=== PATIENT | male | born 1990 | race African-American/Black ===

== ENCOUNTER 2018-12-06 20:00 | Emergency (ER) | payer SELFPAY ==
--- NOTE | 2018-12-06 20:50 | RAD REPORT ---
EXAM DESCRIPTION: CT - Head Brain Wo Cont - 12/06/2018 8:44 pm CLINICAL HISTORY: VISUAL DISTURBANCES Headache, hypertension, drowsiness COMPARISON: <Comparisons> TECHNIQUE: All CT scans are performed using dose optimization technique as appropriate and may inclu de automated exposure control or mA/KV adjustment according to patient size. FINDINGS: No intracranial hemorrhage, hydrocephalus or extra-axial fluid collection.No areas of brai n edema or evidence of midline shift. The paranasal sinuses and mastoids are clear. The calvarium is intact. IMPRESSION: No acute intracranial abnormality.
[2018-12-06 21:08] LABS: Absolute Lymphocytes (CBC) 2.2 K/uL (0.7-4.9); Basophils % 0.6 % (0-1.3); Eosinophils % 2.7 % (0-4.4); Hematocrit 47.1 % (39.6-49.0); Lymphocytes % 27.8 % (15.3-44.8); MPV 9.7 fL (7.6-11.3); Monocytes % 10.5 % (3.3-12.3)
[2018-12-06] MEDS ORDERED: ENALAPRILAT 1.25 MG/ML VIAL IV ONE ×2 (21:19→21:55)
[2018-12-06 21:23] LABS: Potassium 3.8 mmol/L (3.5-5.1)
[2018-12-06] MEDS ORDERED: AMLODIPINE 5 MG TAB ONE (22:31)
[2018-12-07] MEDS ORDERED: HYDRALAZINE HCL 20 MG/ML VIAL ONE (00:02)
--- NOTE | 2018-12-07 00:28 | EDPHYS ---
Physician Documentation [facility] Name: Luis Bowers Jr Age: 28 yrs Sex: Male : 1990 Arrival Date: 12/06/2018 Time: 20:04 Bed 23 Private MD: Yuan Daily V ED Physician Pino Bunn HPI: 12/07 02:57 This 28 yrs old Black Male presents to ER via Ambulatory with complaints of Blurred gs Vision, double vision, High Blood Pressure. 02:57 The patient has elevated blood pressure and discovered this at home. Onset: The gs symptoms/episode began/occurred yesterday. Modifying factors: The symptoms are aggravated by activity, The symptoms are alleviated by. Associated signs and symptoms: Pertinent positives: visual changes, Pertinent negatives: chest pain, dizziness, dyspnea, headache. Severity of symptoms: At its worst the blood pressure was severe, in the emergency department the blood pressure is unchanged. The patient has experienced similar episodes in the past, a few times. hasnt taken amlodipine in a while, vusual changes brief resolved completely. Historical: - Allergies: 12/06 20:17 Claritin; ak1 - Home Meds: 20:17 amlodipine 10 mg tab 1 tab once daily for Hypertension [Active]; ak1 - PMHx: 20:17 Hypertension; ak1 - PSHx: 20:17 None; ak1 - Immunization history:: Adult Immunizations unknown. - Social history:: Smoking status: Patient uses tobacco products, cigars. - Ebola Screening: : No symptoms or risks identified at this time. ROS: 12/07 02:57 All other systems are negative. gs Exam: 02:57 Head/Face: Normocephalic, atraumatic. Eyes: Pupils equal round and reactive to light, gs extra-ocular motions intact. Lids and lashes normal. Conjunctiva and sclera are non-icteric and not injected. Cornea within normal limits. Periorbital areas with no swelling, redness, or edema. ENT: Nares patent. No nasal discharge, no septal abnormalities noted. Tympanic membranes are normal and external auditory canals are clear. Oropharynx with no redness, swelling, or masses, exudates, or evidence of obstruction, uvula midline. Mucous membranes moist. Neck: Trachea midline, no thyromegaly or masses palpated, and no cervical lymphadenopathy. Supple, full range of motion without nuchal rigidity, or vertebral point tenderness. No Meningismus. Chest/axilla: Normal chest wall appearance and motion. Nontender with no deformity. No lesions are appreciated. Cardiovascular: Regular rate and rhythm with a normal S1 and S2. No gallops, murmurs, or rubs. Normal PMI, no JVD. No pulse deficits. Respiratory: Lungs have equal breath sounds bilaterally, clear to auscultation and percussion. No rales, rhonchi or wheezes noted. No increased work of breathing, no retractions or nasal flaring. Abdomen/GI: Soft, non-tender, with normal bowel sounds. No distension or tympany. No guarding or rebound. No evidence of tenderness throughout. Back: No spinal tenderness. No costovertebral tenderness. Full range of motion. Skin: Warm, dry with normal turgor. Normal color with no rashes, no lesions, and no evidence of cellulitis. MS/ Extremity: Pulses equal, no cyanosis. Neurovascular intact. Full, normal range of motion. Neuro: Awake and alert, GCS 15, oriented to person, place, time, and situation. Cranial nerves II-XII grossly intact. Motor strength 5/5 in all extremities. Sensory grossly intact. Cerebellar exam normal. Normal gait. 02:57 Constitutional: The patient appears alert, awake. 02:57 ECG was reviewed by the Attending Physician. Vital Signs: 12/06 20:15 BP 203 / 133; Pulse 92; Resp 16; Temp 98.2; Pulse Ox 97% on R/A; Weight 106.59 kg (R); ak1 Height 5 ft. 8 in. (172.72 cm) (R); Pain 0/10; 20:45 BP 195 / 133; Pulse 84; Resp 19; Pulse Ox 99% on R/A; ca1 21:39 BP 177 / 118; Pulse 70; Resp 17 S; Pulse Ox 95% on R/A; ca1 22:06 BP 175 / 117; Pulse 74; Resp 17 S; Temp 98(O); Pulse Ox 96% on R/A; ca1 22:12 BP 175 / 115; Pulse 70; Resp 21; Pulse Ox 96% on R/A; ca1 22:49 BP 178 / 114; Pulse 66; Resp 21; Pulse Ox 96% on R/A; ca1 23:00 BP 165 / 109; Pulse 73; Resp 16 S; Pulse Ox 98% on R/A; ca1 23:33 BP 178 / 111; Pulse 68; Resp 15; Pulse Ox 97% on R/A; ca1 18 00:03 BP 171 / 108; Pulse 71; Resp 20; Pulse Ox 96% on R/A; ca1 00:50 BP 167 / 106; Pulse 76; Resp 17 S; Pulse Ox 97% on R/A; ca1 12/06 20:15 Body Mass Index 35.73 (106.59 kg, 172.72 cm) ak1 MDM: 12/06 21:09 Patient medically screened. 12/07 02:57 Differential diagnosis: hypertensive crisis, Malignant HTN, intracerebral hemorrhage. Data reviewed: vital signs, nurses notes, lab test result(s), EKG, radiologic studies. Counseling: I had a detailed discussion with the patient and/or guardian regarding: the historical points, exam findings, and any diagnostic results supporting the discharge/admit diagnosis, lab results, radiology results, the need for outpatient follow up. Response to treatment: the patient's symptoms have markedly improved after treatment, the patient is now symptom free, and as a result, I will discharge patient. 12/06 20:20 Order name: Basic Metabolic Panel; Complete Time: 21:34 12/06 20:20 Order name: CBC with Diff; Complete Time: 21:34 12/06 20:20 Order name: CT Head Brain wo Cont; Complete Time: 20:52 12/06 20:20 Order name: EKG; Complete Time: 20:22 12/06 20:20 Order name: Cardiac monitoring; Complete Time: 20:40 12/06 20:20 Order name: EKG - Nurse/Tech; Complete Time: 21:03 12/06 20:20 Order name: IV Saline Lock; Complete Time: 20:40 12/06 20:20 Order name: Labs collected and sent; Complete Time: 21:03 12/06 20:20 Order name: O2 Per Protocol; Complete Time: 20:40 12/06 20:20 Order name: O2 Sat Monitoring; Complete Time: 20:40 EC:57 Rate is 74 beats/min. Rhythm is regular. [place] interval is normal. QRS interval is gs prolonged. T waves are Flattened. Clinical impression: NSR w/ Non-specific ST/T Changes. Interpreted by me. Administered Medications: 12/06 21:08 Drug: Enalaprilat 1.25 mg Route: IV; Rate: 1.25 calculated rate; Site: right ca1 antecubital; 12/07 00:51 Follow up: Response: No adverse reaction; IV Status: Completed infusion ca1 12/06 21:40 Drug: Enalaprilat 1.25 mg Route: IV; Rate: 1.25 calculated rate; Site: right ca1 antecubital; 12/07 00:52 Follow up: Response: No adverse reaction; IV Status: Completed infusion ca1 12/06 22:18 Drug: amLODIPine 10 mg Route: PO; ca1 12/07 00:52 Follow up: Response: No adverse reaction ca1 12/06 23:46 Drug: hydrALAZINE 10 mg Route: IV; Rate: calculated rate; Site: left antecubital; ca1 12/07 00:51 Follow up: Response: No adverse reaction; Blood pressure is lowered; IV Status: ca1 Completed infusion Disposition: 12/07/18 00:26 Discharged to Home. Impression: Essential (primary) hypertension. - Condition is Stable. - Discharge Instructions: Hypertension. - Prescriptions for Norvasc 10 mg Oral Tablet - take 1 tablet by ORAL route once daily; 30 tablet. - Medication Reconciliation Form, Thank You Letter, Antibiotic Education, Prescription Opioid Use form. - Follow up: Private Physician; When: 2 - 3 days; Reason: Re-evaluation by your physician. Signatures: Dispatcher [employer] EDIA Shy Culver RN RN ak1 Pino Bunn MD MD Shi Zhang RN RN ca1 Corrections: (The following items were deleted from the chart) 00:52 00:26 12/07/2018 00:26 Discharged to Home. Impression: Essential (primary) ca1 hypertension. Condition is Stable. Forms are Medication Reconciliation Form, Thank You Letter, Antibiotic Education, Prescription Opioid Use. Follow up: Private Physician; When: 2 - 3 days; Reason: Re-evaluation by your physician.
--- NOTE | 2018-12-07 00:28 | ER ---
Nurse's Notes [facility] Name: Luis Bowers Jr Age: 28 yrs Sex: Male : 1990 Arrival Date: 12/06/2018 Time: 20:04 Bed 23 Private MD: Yuan Daily V Diagnosis: Essential (primary) hypertension Presentation: 12/06 20:16 Presenting complaint: Patient states: double vision since 1245 today. pt stated he took ak1 his blood pressure medication at 1600 for the first time in over a week. pt stated he just refilled his medication today. pt sees Dr. Jacobson. Transition of care: patient was not received from another setting of care. Onset of symptoms was December 06, 2018. Risk Assessment: Do you want to hurt yourself or someone else? Patient reports no desire to harm self or others. Initial Sepsis Screen: Does the patient meet any 2 criteria? No. Patient's initial sepsis screen is negative. Does the patient have a suspected source of infection? No. Patient's initial sepsis screen is negative. Care prior to arrival: None. 20:16 Method Of Arrival: Ambulatory ak1 20:16 Acuity: JOSE 2 ak1 Triage Assessment: 20:17 General: Appears in no apparent distress. Behavior is calm, cooperative, anxious. Pain: ak1 Denies pain. Neuro: Level of Consciousness is awake, alert, obeys commands, Oriented to person, place, time, situation, Swiss Type Screw Machine Operator are equal bilaterally Moves all extremities. Gait is steady, Speech is normal, Facial symmetry appears normal, Facial symmetry: tongue is midline, Pupils are PERRLA, pt c/o double vision since 1245 today. pt has been out of his hypertension medication for "over a week" . Historical: - Allergies: 20:17 Claritin; ak1 - Home Meds: 20:17 amlodipine 10 mg tab 1 tab once daily for Hypertension [Active]; ak1 - PMHx: 20:17 Hypertension; ak1 - PSHx: 20:17 None; ak1 - Immunization history:: Adult Immunizations unknown. - Social history:: Smoking status: Patient uses tobacco products, cigars. - Ebola Screening: : No symptoms or risks identified at this time. Screenin:18 Abuse screen: Denies threats or abuse. Denies injuries from another. Nutritional ak1 screening: No deficits noted. Tuberculosis screening: No symptoms or risk factors identified. Fall Risk None identified. Assessment: 20:15 General: Appears in no apparent distress. comfortable, Behavior is calm, cooperative, ca1 appropriate for age. Pain: Denies pain. Neuro: Level of Consciousness is awake, alert, obeys commands, Oriented to person, place, time, situation, Swiss Type Screw Machine Operator are equal bilaterally Moves all extremities. Gait is steady, Speech is normal, Facial symmetry appears normal, Reports diplopia, since 1230 today. Cardiovascular: Heart tones S1 S2 present Capillary refill < 3 seconds Patient's skin is warm and dry. Respiratory: Airway is patent Respiratory effort is even, unlabored, Respiratory pattern is regular, symmetrical, Breath sounds are clear bilaterally. GI: Abdomen is round non-distended, Bowel sounds present X 4 quads. Abd is soft and non tender X 4 quads. : No deficits noted. No signs and/or symptoms were reported regarding the genitourinary system. EENT: No deficits noted. No signs and/or symptoms were reported regarding the EENT system. Derm: Skin is intact, is healthy with good turgor, Skin is pink, warm \\T\\ dry. Musculoskeletal: Circulation, motion, and sensation intact. Capillary refill < 3 seconds, Range of motion: intact in all extremities. 21:06 Reassessment: Patient appears in no apparent distress at this time. Patient is alert, ca1 oriented x 3, equal unlabored respirations, skin warm/dry/pink. 22:11 Reassessment: Patient appears in no apparent distress at this time. Patient and/or ca1 family updated on plan of care and expected duration. Pain level reassessed. Patient is alert, oriented x 3, equal unlabored respirations, skin warm/dry/pink. 22:49 Reassessment: Patient appears in no apparent distress at this time. Patient and/or ca1 family updated on plan of care and expected duration. Pain level reassessed. Patient is alert, oriented x 3, equal unlabored respirations, skin warm/dry/pink. 23:19 Reassessment: Patient appears in no apparent distress at this time. Patient is alert, ca1 oriented x 3, equal unlabored respirations, skin warm/dry/pink. 12/07 00:03 Reassessment: Patient appears in no apparent distress at this time. Patient and/or ca1 family updated on plan of care and expected duration. Pain level reassessed. Patient is alert, oriented x 3, equal unlabored respirations, skin warm/dry/pink. 00:50 Reassessment: Patient appears in no apparent distress at this time. Patient is alert, ca1 oriented x 3, equal unlabored respirations, skin warm/dry/pink. Vital Signs: 12/06 20:15 BP 203 / 133; Pulse 92; Resp 16; Temp 98.2; Pulse Ox 97% on R/A; Weight 106.59 kg (R); ak1 Height 5 ft. 8 in. (172.72 cm) (R); Pain 0/10; 20:45 BP 195 / 133; Pulse 84; Resp 19; Pulse Ox 99% on R/A; ca1 21:39 BP 177 / 118; Pulse 70; Resp 17 S; Pulse Ox 95% on R/A; ca1 22:06 BP 175 / 117; Pulse 74; Resp 17 S; Temp 98(O); Pulse Ox 96% on R/A; ca1 22:12 BP 175 / 115; Pulse 70; Resp 21; Pulse Ox 96% on R/A; ca1 22:49 BP 178 / 114; Pulse 66; Resp 21; Pulse Ox 96% on R/A; ca1 23:00 BP 165 / 109; Pulse 73; Resp 16 S; Pulse Ox 98% on R/A; ca1 23:33 BP 178 / 111; Pulse 68; Resp 15; Pulse Ox 97% on R/A; ca1 12/07 00:03 BP 171 / 108; Pulse 71; Resp 20; Pulse Ox 96% on R/A; ca1 00:50 BP 167 / 106; Pulse 76; Resp 17 S; Pulse Ox 97% on R/A; ca1 12/06 20:15 Body Mass Index 35.73 (106.59 kg, 172.72 cm) ak1 ED Course: 12/06 20:04 Patient arrived in ED. es 20:05 Yuan Daily MD is Private Physician. es 20:15 radiation monitor on. Warm blanket given. ca1 20:17 Shi Zhang, ARNEL is Primary Nurse. ca1 20:17 Triage completed. ak1 20:18 Arm band placed on Patient placed in an exam room, on a stretcher, on pulse oximetry, ak1 Patient notified of wait time. 20:18 Patient has correct armband on for positive identification. Bed in low position. Call ak1 light in reach. Side rails up X 1. Pulse ox on. NIBP on. 20:20 Pino Bunn MD is Attending Physician. 20:40 No provider procedures requiring assistance completed. Inserted saline lock: 22 gauge ca1 in right forearm, using aseptic technique. Blood collected. 20:43 CT Head Brain wo Cont In Process Unspecified. EDMS 20:[address] via wheelchair. ca1 21:01 Initial lab(s) drawn, by me, sent to lab. ca1 12/07 00:50 IV discontinued, intact, bleeding controlled, No redness/swelling at site. Pressure ca1 dressing applied. Administered Medications: 12/06 21:08 Drug: Enalaprilat 1.25 mg Route: IV; Rate: 1.25 calculated rate; Site: right ca1 antecubital; 12/07 00:51 Follow up: Response: No adverse reaction; IV Status: Completed infusion ca1 12/06 21:40 Drug: Enalaprilat 1.25 mg Route: IV; Rate: 1.25 calculated rate; Site: right ca1 antecubital; 12/07 00:52 Follow up: Response: No adverse reaction; IV Status: Completed infusion ca1 12/06 22:18 Drug: amLODIPine 10 mg Route: PO; ca1 12/07 00:52 Follow up: Response: No adverse reaction ca1 12/06 23:46 Drug: hydrALAZINE 10 mg Route: IV; Rate: calculated rate; Site: left antecubital; ca1 12/07 00:51 Follow up: Response: No adverse reaction; Blood pressure is lowered; IV Status: ca1 Completed infusion Outcome: 00:26 Discharge ordered by . gs 00:50 Discharged to home ambulatory, with family. ca1 00:50 Condition: stable 00:50 Discharge instructions given to patient, Instructed on discharge instructions, follow up and referral plans. medication usage, Demonstrated understanding of instructions, follow-up care, medications, Prescriptions given X 1. 00:52 Patient left the ED. ca1 Signatures: Dispatcher [employer] EDDE Dorinda Norton Amber, RN RN ak1 Pino Bunn MD MD Shi Zhang RN RN ca1
[2018-12-07] MEDS ORDERED: NA CHLORIDE 0.9% 1,000 ML ONE (02:03)
[2018-12-07] MEDS ORDERED: ONDANSETRON 4 MG/2 ML VIAL ONE (02:03)
--- NOTE | 2018-12-07 12:11 | EKG ---
Test Date: 2018-12-06 Test Time: 21:00:12 Personal Care Aide: GENNY MEASUREMENT RESULTS: Intervals: Rate: 74 NH: 174 QRSD: 106 QT: 414 QTc: 459 [place]: P: 53 NH: 174 QRS: 56 T: 20 INTERPRETIVE STATEMENTS: Normal sinus rhythm Nonspecific T wave abnormality Abnormal ECG No previous ECG available for comparison Electronically Signed On 12-07-18 12:10:20 CDT by Juwan Jauregui
== END 2018-12-07 00:52 | disposition home or self-care (01) ==
LOC: ER 20:00
DX: I10 Essential (primary) hypertension (principal); Z72.0 Tobacco use
CPT/HCPCS: 36415; 70450; 80048; 85025; 93005; 99285; J2405; J7030

== ENCOUNTER 2019-06-09 17:16 | Emergency (ER) | payer SELFPAY ==
--- NOTE | 2019-06-09 18:11 | RAD REPORT ---
EXAM DESCRIPTION: RAD - Chest Single View - 06/09/2019 6:05 pm CLINICAL HISTORY: CHEST PAIN Chest pain. COMPARISON: No comparisons FINDINGS: Portable technique limits examination quality. The lungs are grossly clear. The heart is normal in size. No displaced fractures. IMPRESSION: No acute intrathoracic process suspected.
[2019-06-09 18:35] LABS: Absolute Lymphocytes (CBC) 2.1 K/uL (0.7-4.9); Basophils % 0.8 % (0-1.3); Hematocrit 45.4 % (39.6-49.0); Lymphocytes % 28.9 % (15.3-44.8); MPV 9.1 fL (7.6-11.3); RBC Red Blood Cell Count 5.24 M/uL (4.33-5.43)
[2019-06-09 18:43] LABS: Protime INR 1.08
[2019-06-09 18:58] LABS: ALT/SGPT 48 U/L (12-78); AST/SGOT 25 U/L (15-37); Albumin 3.7 g/dL (3.4-5.0); Alkaline Phosphatase 72 U/L (45-117); BUN Blood Urea Nitrogen 12 mg/dL (7-18); Bicarbonate 25 mmol/L (21-32); Bilirubin Direct < 0.1 mg/dL (0-0.2); Bilirubin Total 0.4 mg/dL (0.2-1.0); Glucose Level 92 mg/dL (74-106); Magnesium 2.3 mg/dL (1.8-2.4); NT PRO-BNP 31 pg/mL (<125); Potassium 3.8 mmol/L (3.5-5.1); Protein, Total 8.1 g/dL (6.4-8.2); Sodium Level 140 mmol/L (136-145); Troponin (Emerg Dept Use Only) < 0.02 ng/mL (0.0-0.045)
--- NOTE | 2019-06-09 19:44 | EDPHYS ---
Physician Documentation [facility] Name: Luis Bowers Jr Age: 29 yrs Sex: Male : 1990 Arrival Date: 06/09/2019 Time: 17:17 Bed 7 Private MD: ED Physician Joey Cabral HPI: 06/09 17:47 This 29 yrs old Black Male presents to ER via Ambulatory with complaints of Chest Pain. [facility] 17:47 The patient or guardian reports chest pain that is located primarily in the anterior [facility] chest wall. 17:47 The pain does not radiate. The chest pain is described as aching. Duration: The patient jmm or guardian reports multiple episodes. This is a 29 year old male with a history of htn that presents to the ED with complaints of left sided chest pain which initially began 4 days ago. Patient states he has had ongoing pain to his left shoulder which radiates down his left arm. Denies shortness of breath. . Historical: - Allergies: 17:26 Claritin; aa5 - Home Meds: 17:26 amlodipine 10 mg tab 1 tab once daily for Hypertension [Active]; aa5 - PMHx: 17:26 Hypertension; aa5 - PSHx: 17:26 None; aa5 - Immunization history:: Flu vaccine is not up to date. - Social history:: Smoking status: Patient uses tobacco products, cigars. - Ebola Screening: : No symptoms or risks identified at this time. ROS: 17:47 Constitutional: Negative for fever, chills, and weight loss. jmm 17:47 Respiratory: Negative for shortness of breath, cough, wheezing, and pleuritic chest pain. 17:47 Cardiovascular: Positive for chest pain. 17:47 Respiratory: 17:47 Back: Positive for pain with movement. 17:47 MS/extremity: Positive for pain. 17:47 All other systems are negative. Exam: 17:47 Constitutional: This is a well developed, well nourished patient who is awake, alert, jmm and in no acute distress. Head/Face: atraumatic. Eyes: EOMI, no conjunctival erythema appreciated ENT: Moist Mucus Membranes Neck: Trachea midline, Supple Chest/axilla: Normal chest wall appearance and motion. 17:47 Abdomen/GI: Non distended, soft Back: Normal ROM Skin: General appearance color normal MS/ Extremity: Moves all extremities, no obvious deformities appreciated, no edema noted to the lower extremities Neuro: Awake and alert, normal gait Psych: Behavior is normal, Mood is normal, Patient is cooperative and pleasant 17:47 Cardiovascular: Rate: normal, Rhythm: regular, Pulses: no pulse deficits are appreciated. 17:47 ECG was reviewed by the Attending Physician. 17:47 Respiratory: the patient does not display signs of respiratory distress, Respirations: normal, Breath sounds: are clear throughout. Vital Signs: 17:20 BP 138 / 92; Pulse 73; Resp 16 S; Temp 98.3(O); Pulse Ox 98% on R/A; Weight 108.86 kg aa5 (R); Height 5 ft. 8 in. (172.72 cm) (R); Pain 0/10; 18:31 BP 138 / 90; Pulse 77; Resp 16; Pulse Ox 97% ; sv 19:14 BP 164 / 96; Pulse 72; Resp 18; Pulse Ox 97% on R/A; lp1 20:16 BP 141 / 75; Pulse 75; Resp 19; Temp 97.7; Pulse Ox 99% on R/A; rr5 17:20 Body Mass Index 36.49 (108.86 kg, 172.72 cm) aa5 MDM: 17:47 Patient medically screened. [facility] 19:38 Data reviewed: vital signs, nurses notes, EMS record, lab test result(s). ED course: [facility] HEART SCORE = 3. PERC NEGATIVE. Pain is most likely musculoskeletal and is reproduceable on movement and palpation. Patient advised to follow up with PCP and otherwise given strict return precautions. Patient understood and agrees with the plan of care. . 06/09 17:47 Order name: Basic Metabolic Panel; Complete Time: 18:59 [facility] 06/09 17:47 Order name: CBC with Diff; Complete Time: 18:50 [facility] 06/09 17:47 Order name: LFT's; Complete Time: 18:59 [facility] 06/09 17:47 Order name: Magnesium; Complete Time: 18:59 [facility] 06/09 17:47 Order name: NT PRO-BNP; Complete Time: 18:59 [facility] 06/09 17:47 Order name: PT-INR; Complete Time: 18:46 [facility] 06/09 17:47 Order name: Troponin (emerg Dept Use Only); Complete Time: 18:59 [facility] 06/09 17:47 Order name: XRAY Chest (1 view); Complete Time: 18:19 [facility] 06/09 17:47 Order name: EKG; Complete Time: 17:48 [facility] 06/09 17:47 Order name: Cardiac monitoring; Complete Time: 17:58 [facility] 06/09 17:47 Order name: EKG - Nurse/Tech; Complete Time: 17:58 [facility] 06/09 17:47 Order name: IV Saline Lock; Complete Time: 17:58 [facility] 06/09 17:47 Order name: Labs collected and sent; Complete Time: 17:58 [facility] 06/09 17:47 Order name: O2 Per Protocol; Complete Time: 17:58 [facility] 06/09 17:47 Order name: O2 Sat Monitoring; Complete Time: 17:58 jmm EC:47 Rate is 77 beats/min. Rhythm is regular. QRS [place] is Normal. [place] interval is normal. QRS jmm interval is normal. QT interval is normal. No Q waves. T waves are Inverted in lead III. Reviewed by me. Administered Medications: No medications were administered Disposition: 06/10 07:16 Co-signature as Attending Physician, Joey Cabral MD. rn Disposition: 06/09/19 19:43 Discharged to Home. Impression: Chest pain, unspecified. - Condition is Stable. - Discharge Instructions: Nonspecific Chest Pain. - Prescriptions for orphenadrine citrate 100 mg Oral Tablet Sustained Release - take 1 tablet by ORAL route 2 times per day As needed; 20 tablet. - Medication Reconciliation Form, Thank You Letter, Antibiotic Education, Prescription Opioid Use form. - Follow up: Private Physician; When: 2 - 3 days; Reason: Recheck today's complaints, Continuance of care, Re-evaluation by your physician. Signatures: Dispatcher [employer] EDMS Fco Franklin PA PA jmm Nieto, Roman, MD MD rn Calderon, Audri RN RN aa5 Alphonse Smith RN RN rr5 Corrections: (The following items were deleted from the chart) 06/09 20:18 19:43 06/09/2019 19:43 Discharged to Home. Impression: Chest pain, unspecified. rr5 Condition is Stable. Forms are Medication Reconciliation Form, Thank You Letter, Antibiotic Education, Prescription Opioid Use. Follow up: Private Physician; When: 2 - 3 days; Reason: Recheck today's complaints, Continuance of care, Re-evaluation by your physician. quyen
--- NOTE | 2019-06-09 19:44 | ER ---
Nurse's Notes [facility] Name: Luis Bowers Jr Age: 29 yrs Sex: Male : 1990 Arrival Date: 06/09/2019 Time: 17:17 Bed 7 Private MD: Diagnosis: Chest pain, unspecified Presentation: 06/09 17:19 Presenting complaint: Patient states: pain to left anterior aspect of chest that began aa5 Thursday night and went away and now pain is back to left scapular area. Pt states "It only hurts with certain movement and when I lay on my back it stops hurting". 17:19 Transition of care: patient was not received from another setting of care. Onset of aa5 symptoms was May 2019. Risk Assessment: Do you want to hurt yourself or someone else? Patient reports no desire to harm self or others. Initial Sepsis Screen: Does the patient meet any 2 criteria? No. Patient's initial sepsis screen is negative. Does the patient have a suspected source of infection? No. Patient's initial sepsis screen is negative. Care prior to arrival: None. 17:19 Acuity: JOSE 3 aa5 17:19 Method Of Arrival: Ambulatory aa5 Historical: - Allergies: 17:26 Claritin; aa5 - Home Meds: 17:26 amlodipine 10 mg tab 1 tab once daily for Hypertension [Active]; aa5 - PMHx: 17:26 Hypertension; aa5 - PSHx: 17:26 None; aa5 - Immunization history:: Flu vaccine is not up to date. - Social history:: Smoking status: Patient uses tobacco products, cigars. - Ebola Screening: : No symptoms or risks identified at this time. Screenin:58 Abuse screen: Denies threats or abuse. Denies injuries from another. Nutritional sg screening: No deficits noted. Tuberculosis screening: No symptoms or risk factors identified. Never had TB. Fall Risk None identified. Assessment: 17:58 General: Appears in no apparent distress. well groomed, well developed, well nourished, sg Behavior is calm, cooperative, appropriate for age. Pain: Complains of pain in chest Pain radiates to left scapular area Quality of pain is described as aching, sharp. Neuro: Level of Consciousness is awake, alert, obeys commands, Oriented to person, place, time, situation, Coffee Bar Attendant are equal bilaterally Moves all extremities. Speech is normal, Facial symmetry appears normal. Cardiovascular: Capillary refill is brisk in bilateral fingers Patient's skin is warm and dry. Chest pain is described as mild, quality is sharp, is located in anterior chest wall radiates to left scapula. Respiratory: Airway is patent Respiratory effort is even, unlabored, Respiratory pattern is regular, symmetrical. GI: Abdomen is round non-distended, Bowel sounds present X 4 quads. Reports tolerance of fluids, tolerance of food. : No signs and/or symptoms were reported regarding the genitourinary system. EENT: No signs and/or symptoms were reported regarding the EENT system. Derm: Skin is pink, warm \\T\\ dry. Musculoskeletal: Circulation, motion, and sensation intact. Range of motion: intact in all extremities. 19:13 Reassessment: Patient appears in no apparent distress at this time. Patient is alert, lp1 oriented x 3, equal unlabored respirations, skin warm/dry/pink. Pain: Complains of pain in chest Pain began 2-3 days ago. Aggravated by repositioning. Neuro: No deficits noted. Cardiovascular: Patient's skin is warm and dry. Respiratory: Respiratory effort is even, unlabored. 20:17 Reassessment: Patient appears in no apparent distress at this time. Patient is alert, rr5 oriented x 3, equal unlabored respirations, skin warm/dry/pink. discharge instruction given and explained to patient without complaints made, verbalized understading. Vital Signs: 17:20 BP 138 / 92; Pulse 73; Resp 16 S; Temp 98.3(O); Pulse Ox 98% on R/A; Weight 108.86 kg aa5 (R); Height 5 ft. 8 in. (172.72 cm) (R); Pain 0/10; 18:31 BP 138 / 90; Pulse 77; Resp 16; Pulse Ox 97% ; sv 19:14 BP 164 / 96; Pulse 72; Resp 18; Pulse Ox 97% on R/A; lp1 20:16 BP 141 / 75; Pulse 75; Resp 19; Temp 97.7; Pulse Ox 99% on R/A; rr5 17:20 Body Mass Index 36.49 (108.86 kg, 172.72 cm) aa5 ED Course: 17:17 Patient arrived in ED. as 17:19 Fco Franklin PA is PHCP. [facility] 17:19 Joey Cabral MD is Attending Physician. [facility] 17:19 Arm band placed on Patient placed in an exam room, on a stretcher. aa5 17:25 Triage completed. aa5 17:36 Ward Hernandez, RN is Primary Nurse. sg 17:55 EKG done, by ED staff, reviewed by Fco SCHWAB. sg 18:00 Patient has correct armband on for positive identification. Bed in low position. Call sg light in reach. Pulse ox on. NIBP on. Head of bed elevated. 18:05 XRAY Chest (1 view) In Process Unspecified. EDMS 18:15 No provider procedures requiring assistance completed. Initial lab(s) drawn, by me, sg sent to lab. Inserted saline lock: 22 gauge in right wrist, using aseptic technique. Blood collected. Patient maintains SpO2 saturation greater than 95% on room air. 20:16 IV discontinued, intact, bleeding controlled, No redness/swelling at site. Pressure rr5 dressing applied. Administered Medications: No medications were administered Outcome: 19:43 Discharge ordered by MD. [facility] 20:16 Discharged to home ambulatory. rr5 20:16 Condition: stable 20:16 Discharge instructions given to patient, Instructed on discharge instructions, follow up and referral plans. medication usage, Demonstrated understanding of instructions, follow-up care, medications, Prescriptions given X 1. 20:18 Patient left the ED. rr5 Signatures: Dispatcher [employer] EDMS Jenny Guzman RN RN Ward Hernandez, Fco Prather RN, PA PA jmm Martinez, Amelia as Calderon, Audri, ARNEL RN aa5 Kailyn Mora RN RN lp1 Alphonse Smith, ARNEL RN rr5 Corrections: (The following items were deleted from the chart) 17:28 17:19 Presenting complaint: Patient states: pain to left anterior aspect of chest that aa5 began Thursday night and went away and now pain is back to left scapular area. Pt states "It only hurts with certain movement and when I lye on my back it stops hurting". aa5 17:28 17:19 Presenting complaint: Patient states: pain to left anterior aspect of chest that aa5 began Thursday night and went away and now pain is back to left scapular area. Pt states "It only hurts with certain movement and when I lie on my back it stops hurting". aa5
[2019-06-09 20:44] VITALS: BP 141/75; TEMP 97.7; O2SAT 99
--- NOTE | 2019-06-10 16:36 | EKG ---
Test Date: 2019-06-09 Test Time: 17:53:44 Neuropsychologist: SWG MEASUREMENT RESULTS: Intervals: Rate: 77 TX: 162 QRSD: 76 QT: 374 QTc: 423 [place]: P: 18 TX: 162 QRS: 27 T: -22 INTERPRETIVE STATEMENTS: Normal sinus rhythm T wave abnormality, consider inferior ischemia Abnormal ECG Compared to ECG 12/06/2018 21:00:12 Possible ischemia now present T-wave abnormality still present Electronically Signed On 06-10-19 16:34:05 [employer]PER[employer] by Juwan Jauregui
== END 2019-06-09 20:18 | disposition home or self-care (01) ==
LOC: ER 17:16
DX: R07.9 Chest pain, unspecified (principal); I10 Essential (primary) hypertension; F17.290 Nicotine dependence, other tobacco product, uncomplicated; Z88.8 Allergy status to other drugs, medicaments and biological substances
CPT/HCPCS: 36415; 71045; 80048; 80076; 83735; 83880; 84484; 85025; 85610; 93005; 99284

== ENCOUNTER 2021-12-09 10:17 | Emergency (ER) | payer SELFPAY ==
--- OUTSIDE RECORDS SUMMARY | 2021-12-09 11:01 | XMS REPORT | Continuity of Care Document ---
:[address] [facility] t Address [address] [place] [address] Care Team Providers Name Role Phone [facility] Primary Care Physician Unavailable Óscar SHELTON Attending Clinician Unavailable Ashly PENNINGTON, S Attending Clinician Problems Condition Condition Condition Status Onset Resolution Last Treating Co mments Source Name Details Category Date Date Treatment Clinician Date Essential Essential Disease Active Uni vers hypertensi hypertensi 03-21 [place] y [place] [address] [place] [address] Allergies, Adverse Reactions, Alerts Allergy Allergy Status Severity Reaction(s) Onset Inactive Treating Comm ents Source Name Type Date Date Clinician NO KNOWN Drug Active Univers ALLERGIE Class ity of S [facility] Social History Social Habit Start Date Stop Date Quantity Comments Source History [facility] o f Alcohol Std Drinks [facility] History [facility] o f Alcohol Binge [facility] al [place] History of tobacco Cigar Smoker Univ ersity of use [facility] Exposure to 2021-11-01 2021-11-11 Not sure University of SARS-CoV-2 (event) 00:00:00 22:23:00 [facility] Cigarettes smoked 2014-03-21 2014-03-21 Univers ity of current (pack per 00:00:00 00:00:00 [facility] ) - Reported Branch Cigarette 2014-03-21 2014-03-21 University of pack-years 00:00:00 00:00:00 [facility] Tobacco use and 2014-03-21 2014-03-21 Never used Universit y of exposure 00:00:00 00:00:00 [facility] Alcohol intake 2014-03-21 2014-03-21 Current drinker Unive rsity of 00:00:00 00:00:00 of alcohol [place] [facility] (finding) [facility] Alcohol Comment 2014-03-21 2014-03-21 socially on Universi ty of 00:00:00 00:00:00 weekends he's [place] [facility] not working Branch Sex Assigned At [birth year] Universit y of 00:00:00 00:00:00 [facility] Smoking Status Start Date Stop Date Source Current every day smoker 2014-03-21 00:00:00 Uni versity [facility] Medications Ordered Filled Start Stop Current Ordering Indication Dosage Frequency Signature Comments Components Source Medication Medication Date Date Medication? Clinician (SIG) Name Name ibuprofen 800mg 800 mg, Uni vers (IBU) 11-12 Oral, ity of tablet 800 04:45: 03:34 ONCE, 1 [place] as mg 00 :00 dose, On Medical Mon Branch 11/11/21 at 2345, SYDNEE indomethaci Yes [id number] 50mg Take 1 Univers n 50 mg 11-11 [id number] capsule by ity o f capsule 00:00: mouth 3 [place] 00 (three) Medical times Branch daily with meals. Amlodipine- Yes 1{tbl} Take 1 Tab Univers Olmesartan 9-30 by mouth ity o f (EFREN) 16:10: daily. [place] 10-20 mg 34 Medical Tab Branch Vital Signs Vital Name Observation Time Observation Value Comments Source Systolic blood 2021-11-12 03:25:00 138 mm[Hg] Univer sity of pressure [facility] Diastolic blood 2021-11-12 03:25:00 79 mm[Hg] Unive rsity of pressure [facility] Heart rate 2021-11-12 03:25:00 90 /min [facility] Body temperature 2021-11-12 03:25:00 37.5 Mylene [facility] Respiratory rate 2021-11-12 03:25:00 16 /min [facility] Body height 2021-11-12 03:25:00 172.7 cm [facility] Body weight 2021-11-12 03:25:00 104.327 kg [facility] BMI 2021-11-12 03:25:00 34.97 kg/m2 [facility] Oxygen saturation in 2021-11-12 03:25:00 100 /min [facility] Arterial blood by [facility] Pulse oximetry Branch Procedures Procedure Date / Time Performed Performing Clinician Sour e NOTICE OF PRIVACY 2021-11-12 03:03:42 Doctor Unassigned, No Univ [facility] PRACTICES Name Medical Branch CONSENT/REFUSAL FOR 2021-11-12 03:00:21 Doctor Unassigned, No Un [facility] DIAGNOSIS AND Name Medical Branch TREATMENT Encounters Start End Encounter Admission Attending Care Care Encounter Source Date/Time Date/Time Type Type Clinicians Facility Department ID 2021-11-11 2021-11-11 Emergency X [facility] ERT [id number] [facility] 22:28:00 23:19:00 CESARIO mas [facility] 2021-11-11 2021-11-11 Emergency [facility] [id number] Univers 22:28:00 23:19:00 Cesario BUCK[id number] [facility] [id number] [facility] [id number] [facility] 084 Branch Results This patient has no known results.
[2021-12-09] MEDS ORDERED: KETOROLAC 30 MG/ML INJ ONE (11:16)
--- NOTE | 2021-12-09 11:51 | ER ---
Nurse's Notes [facility] Name: Luis Bowers Jr Age: 31 yrs Sex: Male : 1990 Arrival Date: 12/09/2021 Time: 10:17 Bed 10 Private MD: Diagnosis: Gout Presentation: 12/09 10:24 Chief complaint: Patient states: gout to left foot that began 1 month ago, pt states aa5 "they gave me medicine for it and the swelling came down but now it's back". Coronavirus screen: At this time, the client does not indicate any symptoms associated with coronavirus-19. Ebola Screen: No symptoms or risks identified at this time. Initial Sepsis Screen: Does the patient meet any 2 criteria? No. Patient's initial sepsis screen is negative. Does the patient have a suspected source of infection? No. Patient's initial sepsis screen is negative. Risk Assessment: Do you want to hurt yourself or someone else? Patient reports no desire to harm self or others. Onset of symptoms was November 2021. 10:24 Acuity: JOSE 4 aa5 10:24 Method Of Arrival: Wheelchair aa5 Triage Assessment: 11:00 General: Appears in no apparent distress. Behavior is calm, cooperative. iw Historical: - Allergies: 10:25 Claritin; aa5 - Home Meds: 10:25 amlodipine 10 mg tab 1 tab once daily for Hypertension [Active]; aa5 - PMHx: 10:25 Hypertension; Gout; aa5 - Immunization history:: Adult Immunizations unknown. - Social history:: Smoking status: Patient reports the use of cigarette tobacco products, cigars. Screenin:00 Abuse screen: Denies threats or abuse. Denies injuries from another. Nutritional iw screening: No deficits noted. Tuberculosis screening: No symptoms or risk factors identified. Fall Risk None identified. Assessment: 11:00 General: Appears in no apparent distress. Pain: Complains of pain in left foot. Neuro: iw Level of Consciousness is awake, alert, obeys commands, Oriented to person, place, time, situation, Moves all extremities. Cardiovascular: Patient's skin is warm and dry. Respiratory: Respiratory effort is even, unlabored, Respiratory pattern is regular, symmetrical. Derm: Skin is intact, is healthy with good turgor. Musculoskeletal: Range of motion: intact in all extremities. Vital Signs: 10:24 BP 145 / 93; Pulse 83; Resp 18 S; Temp 98.6(TE); Pulse Ox 100% on R/A; Weight 106.59 kg aa5 (R); Height 5 ft. 8 in. (172.72 cm) (R); 10:24 Body Mass Index 35.73 (106.59 kg, 172.72 cm) aa5 ED Course: 10:17 Patient arrived in ED. am2 10:24 Arm band placed on. aa5 10:25 Triage completed. aa5 10:28 Fco Franklin PA is PHCP. [facility] 10:28 Bill Campbell MD is Attending Physician. [facility] 10:56 Donna Amos, RN is Primary Nurse. iw 11:00 Patient has correct armband on for positive identification. iw 11:50 Jaswant Hinkle DPM is Referral Physician. [facility] 12:03 No provider procedures requiring assistance completed. Patient did not have IV access iw during this emergency room visit. Administered Medications: 11:10 Drug: Ketorolac 30 mg Route: IM; Site: left ventrogluteal; iw 11:30 Follow up: Response: No adverse reaction; Pain is decreased iw Medication: 11:29 VIS not applicable for this client. iw Outcome: 11:51 Discharge ordered by . [facility] 12:03 Discharged to home ambulatory. iw 12:03 Condition: good 12:03 Discharge instructions given to patient, Instructed on discharge instructions, follow up and referral plans. medication usage, Demonstrated understanding of instructions, follow-up care, medications, Prescriptions given X 1. 12:04 Patient left the ED. iw Signatures: Fco Franklin PA PA [facility] Donna Amos, RN RN iw Meaghan Julio, RN RN 5 Nelly Adams am2 Corrections: (The following items were deleted from the chart) 12/10 08:02 06 12:03 Discharge instructions given to patient, Instructed on discharge iw instructions, follow up and referral plans. medication usage, Demonstrated understanding of instructions, follow-up care, medications, iw
--- NOTE | 2021-12-09 11:52 | EDPHYS ---
Physician Documentation [facility] Name: Luis Bowers Jr Age: 31 yrs Sex: Male : 1990 Arrival Date: 12/09/2021 Time: 10:17 Bed 10 Private MD: BERNIE Physician Bill Campbell HPI: 12/09 10:29 This 31 yrs old Black Male presents to ER via Wheelchair with complaints of Foot Pain - jmm left. 10:29 The patient presents with pain. Onset: The symptoms/episode began/occurred today. jmm Modifying factors: The symptoms are alleviated by nothing. the symptoms are aggravated by movement, weight bearing. Patient complains of left foot pain he attributes to a gout flare. Patient states he recently had a flare one month ago. Denies fever. . Historical: - Allergies: 10:25 Claritin; aa5 - Home Meds: 10:25 amlodipine 10 mg tab 1 tab once daily for Hypertension [Active]; aa5 - PMHx: 10:25 Hypertension; Gout; aa5 - Immunization history:: Adult Immunizations unknown. - Social history:: Smoking status: Patient reports the use of cigarette tobacco products, cigars. ROS: 10:29 Constitutional: Negative for fever, chills, and weight loss, Cardiovascular: Negative jmm for chest pain, palpitations, and edema, Respiratory: Negative for shortness of breath, cough, wheezing, and pleuritic chest pain. 10:29 MS/extremity: Positive for pain. 10:29 All other systems are negative. Exam: 10:29 Constitutional: This is a well developed, well nourished patient who is awake, alert, jmm and in no acute distress. Head/Face: atraumatic. Eyes: EOMI, no conjunctival erythema appreciated ENT: Moist Mucus Membranes Neck: Trachea midline, Supple Chest/axilla: Normal chest wall appearance and motion. Cardiovascular: Regular rate and rhythm. No edema appreciated Respiratory: Normal respirations, no respiratory distress appreciated Abdomen/GI: Non distended, soft Back: Normal ROM 10:29 Musculoskeletal/extremity: left foot diffusely ttp, compartments are soft, full dorsalis pulse, NVI. 10:29 Skin: Appearance: Color: normal in color. 10:29 Neuro: Orientation: is normal, Mentation: is normal, Memory: is normal. 10:29 Psych: Behavior/mood is pleasant, cooperative. Vital Signs: 10:24 BP 145 / 93; Pulse 83; Resp 18 S; Temp 98.6(TE); Pulse Ox 100% on R/A; Weight 106.59 kg aa5 (R); Height 5 ft. 8 in. (172.72 cm) (R); 10:24 Body Mass Index 35.73 (106.59 kg, 172.72 cm) aa5 MDM: 10:29 Patient medically screened. [facility] 11:50 Data reviewed: vital signs, nurses notes. [facility] 11:50 Counseling: I had a detailed discussion with the patient and/or guardian regarding: the [facility] historical points, exam findings, and any diagnostic results supporting the discharge/admit diagnosis, the need for outpatient follow up, to return to the emergency department if symptoms worsen or persist or if there are any questions or concerns that arise at home. Administered Medications: 11:10 Drug: Ketorolac 30 mg Route: IM; Site: left ventrogluteal; 11:30 Follow up: Response: No adverse reaction; Pain is decreased Disposition Summary: 12/09/21 11:51 Discharge Ordered Location: Home [facility] Condition: Stable [facility] Diagnosis - Gout [facility] Followup: [facility] - With: Jaswant Hinkle DPM - When: 2 - 3 days - Reason: Recheck today's complaints, Continuance of care, Re-evaluation by your physician Discharge Instructions: - Discharge Summary Sheet [facility] - Gout [facility] Forms: - Medication Reconciliation Form [facility] - Thank You Letter [facility] - Antibiotic Education [facility] - Prescription Opioid Use [facility] Prescriptions: - indomethacin 50 mg Oral capsule - take 1 capsule by ORAL route 3 times per day with food; 30 capsule; Refills: 0, [facility] Product Selection Permitted Signatures: Bill Campbell MD MD cha Mickail, Joel, PA PA [facility] Donna Amos, RN RN Meaghan Julio RN RN aa5
[2021-12-09 12:08] VITALS: BP 145/93; TEMP 98.6; O2SAT 100
== END 2021-12-09 12:04 | disposition home or self-care (01) ==
LOC: ER 10:17
DX: M10.9 Gout, unspecified (principal); I10 Essential (primary) hypertension; F17.290 Nicotine dependence, other tobacco product, uncomplicated; Z88.8 Allergy status to other drugs, medicaments and biological substances
CPT/HCPCS: 96372; 99283

== ENCOUNTER 2023-02-17 01:04 | Emergency (ER) | payer SELFPAY ==
--- OUTSIDE RECORDS SUMMARY | 2023-02-17 01:06 | XMS REPORT | Continuity of Care Document ---
:1990 Author Organization [facility] t Address [address] [place] [address] [address] [place] [address] Care Team Providers Name Role Phone [facility] Primary Care Physi leslie Unavailable CESARIO SHELTON Attending Clinician Unavailable Cesario Shelton MD Attending Clinician Problems Condition Condition Condition Status Onset Resolution Last Treating Co mments Source Name Details Category Date Date Treatment Clinician Date Essential Essential Disease Active Uni vers hypertensi hypertensi 03-21 [place] y [place] [facility] Allergies, Adverse Reactions, Alerts Allergy Allergy Status Severity Reaction(s) Onset Inactive Treating Comm ents Source Name Type Date Date Clinician NO KNOWN Drug Active Univers ALLERGIE Class ity of S [facility] Social History Social Habit Start Date Stop Date Quantity Comments Source [facility] University o f Alcohol Std Drinks [facility] History [facility] o f Alcohol Binge [facility] al Branch History of tobacco Cigar Smoker Univ ersity of use [facility] Exposure to 2021-11-01 2021-11-11 Not sure University of SARS-CoV-2 (event) 00:00:00 22:23:00 [facility] Cigarettes smoked 2014-03-21 2014-03-21 Univers ity of current (pack per 00:00:00 00:00:00 [facility] ) - Reported Branch Cigarette 2014-03-21 2014-03-21 University of pack-years 00:00:00 00:00:00 [facility] Tobacco use and 2014-03-21 2014-03-21 Never used Universit y of exposure 00:00:00 00:00:00 [facility] Alcohol intake 2014-03-21 2014-03-21 Current drinker Unive rsity of 00:00:00 00:00:00 of alcohol [facility]finding[facility] Alcohol Comment 2014-03-21 2014-03-21 socially on Universi ty of 00:00:00 00:00:00 weekends he's [place] [facility] not working Branch Sex Assigned At [birth year] Universit y of 00:00:00 00:00:00 [facility] Smoking Status Start Date Stop Date Source Current every day smoker 2014-03-21 00:00:00 Uni versity [facility] Medications Ordered Filled Start Stop Current Ordering Indication Dosage Frequency Signature Comments Components Source Medication Medication Date Date Medication? Clinician (SIG) Name Name ibuprofen 800mg 800 mg, Uni vers (IBU) 11-12 Oral, ity of tablet 800 04:45: 03:34 ONCE, 1 Handy as mg 00 :00 dose, On Medical Mon Branch 11/11/21 at 2345, SYDNEE indomethaci Yes [id number] 50mg Take 1 Univers n 50 mg 11-11 [id number] capsule by ity o f capsule 00:00: mouth 3 [place] 00 (three) Medical times Branch daily with meals. Amlodipine- Yes 1{tbl} Take 1 Tab Univers Olmesartan 9-30 by mouth ity o f (EFREN) 16:10: daily. [place] 10-20 mg 34 Medical Tab Branch Vital Signs Vital Name Observation Time Observation Value Comments Source Systolic blood 2021-11-12 03:25:00 138 mm[Hg] Univer sity of pressure [facility] Diastolic blood 2021-11-12 03:25:00 79 mm[Hg] Unive rsity of pressure [facility] Heart rate 2021-11-12 03:25:00 90 /min Universi ty of [facility] Body temperature 2021-11-12 03:25:00 37.5 Mylene Univ ersity of [facility] Respiratory rate 2021-11-12 03:25:00 16 /min [facility] Body height 2021-11-12 03:25:00 172.7 cm [facility] Body weight 2021-11-12 03:25:00 104.327 kg [facility] BMI 2021-11-12 03:25:00 34.97 kg/m2 [facility] Oxygen saturation in 2021-11-12 03:25:00 100 /min [facility] Arterial blood by [facility] [place] [facility] Pulse oximetry Branch Procedures Procedure Date / Time Performed Performing Clinician Sour e NOTICE OF PRIVACY 2021-11-12 03:03:42 Doctor Unassigned, No [facility] PRACTICES Name Medical Branch CONSENT/REFUSAL FOR 2021-11-12 03:00:21 Doctor Unassigned, No [facility] DIAGNOSIS AND Name Medical Branch TREATMENT Encounters Start End Encounter Admission Attending Care Care Encounter Source Date/Time Date/Time Type Type Clinicians Facility Department ID 2021-11-11 2021-11-11 Emergency [facility] [id number] Univers 22:28:00 23:19:00 CESARIO mas [facility] 2021-11-11 2021-11-11 Emergency [facility] [id number] Univers 22:28:00 23:19:00 Cesario BUCKLEY [id number] [facility] [id number] [facility] [id number] [facility] 084 Branch Results This patient has no known results.
[2023-02-17] MEDS ORDERED: KETOROLAC 30 MG/ML INJ ONE (01:50)
[2023-02-17 02:09] LABS: Specific Gravity 1.017 (1.005-1.030); Urine Bilirubin NEGATIVE (Negative); Urine Blood Negative (Negative); Urine Clarity Clear (Clear); Urine Color Light-Yellow (Yellow); Urine Glucose NEGATIVE (Negative); Urine Protein NEGATIVE (Negative); Urine Urobilinogen Normal (Normal); Urine pH 5.5 (5.0-7.0)
--- NOTE | 2023-02-17 02:46 | ER ---
Nurse's Notes [facility] Name: Luis Bowers Jr Age: 32 yrs Sex: Male : 1990 Arrival Date: 02/17/2023 Time: 01:04 Bed 19 Private MD: Diagnosis: Left Flank Pain Presentation: 02/17 01:09 Chief complaint: Patient states: left lower flank pain that radiates to upper back. as6 Coronavirus screen: At this time, the client does not indicate any symptoms associated with coronavirus-19. Ebola Screen: No symptoms or risks identified at this time. Initial Sepsis Screen: Does the patient meet any 2 criteria? No. Patient's initial sepsis screen is negative. Does the patient have a suspected source of infection? No. Patient's initial sepsis screen is negative. Risk Assessment: Do you want to hurt yourself or someone else? Patient reports no desire to harm self or others. Onset of symptoms was February 10, 2023. 01:09 Acuity: JOSE 3 as6 01:09 Method Of Arrival: Ambulatory as6 Triage Assessment: 01:13 General: Appears in no apparent distress. Behavior is calm, cooperative. Pain: as6 Complains of pain in left flank. Historical: - Allergies: 01:12 Claritin; as6 - PMHx: 01:12 Gout; Hypertension; as6 - PSHx: 01:12 None; as6 - Immunization history:: Client reports receiving the 2nd dose of the Covid vaccine, [employer]. - Social history:: Smoking status: Patient reports the use of cigarette tobacco products, cigars. Screenin:08 [facility] ED Fall Risk Assessment (Adult) History of falling in the last 3 months, bp including since admission No falls in past 3 months (0 pts). Abuse screen: Denies threats or abuse. Denies injuries from another. Nutritional screening: No deficits noted. Tuberculosis screening: No symptoms or risk factors identified. Assessment: 03:08 Reassessment: [facility]. bp Vital Signs: 01:09 BP 150 / 92; Pulse 85; Resp 18 S; Temp 97.9(TE); Pulse Ox 100% on R/A; Weight 102.06 kg as6 (R); Height 5 ft. 8 in. (R); Pain 5/10; 03:08 BP 147 / 89; Pulse 79; Resp 16; Pulse Ox 100% ; bp 01:09 Body Mass Index 34.21 (102.06 kg, 172.72 cm) as6 01:09 Pain Scale: Adult as6 ED Course: 01:07 Patient arrived in ED. ag3 01:12 Triage completed. as6 01:13 Arm band placed on. as6 01:15 Therese López F[facility]-C [facility]. kb 01:15 Bill Campbell MD is Attending Physician. kb 01:22 Stanton Swenson, RN is Primary Nurse. bp 01:50 Chest Single View XRAY In Process Unspecified. EDMS 02:03 CT Stone Protocol In Process Unspecified. EDMS 03:08 Patient has correct armband on for positive identification. Bed in low position. Call bp light in reach. 03:08 No provider procedures requiring assistance completed. Patient did not have IV access bp during this emergency room visit. Administered Medications: 01:40 Drug: Ketorolac IM 30 mg Route: IM; Site: left gluteus; bp 02:24 Follow up: Response: No adverse reaction bp Medication: 03:08 VIS not applicable for this client. bp Outcome: 02:46 Discharge ordered by . kb 03:08 Discharged to home ambulatory. bp 03:08 Condition: stable 03:08 Discharge instructions given to patient, Instructed on discharge instructions, follow up and referral plans. medication usage, Demonstrated understanding of instructions, follow-up care, medications, Prescriptions given X 3. 03:09 Patient left the ED. bp Signatures: Dispatcher [employer] EDGA Therese López FNP-C FNP-Ckb Stanton Swenson, RN RN bp Claritza Macdonald ag3 Yasir López RN RN as6
--- NOTE | 2023-02-17 02:46 | EDPHYS ---
Physician Documentation [facility] Name: Luis Bowers Jr Age: 32 yrs Sex: Male : 1990 Arrival Date: 02/17/2023 Time: 01:04 Bed 19 Private MD: ED Physician Bill Campbell HPI: 02/17 01:40 This 32 yrs old Black Male presents to ER via Ambulatory with complaints of Flank Pain. kb 01:40 The patient complains of pain in the left flank. The pain radiates to the chest. Onset: kb The symptoms/episode began/occurred 1 week(s) ago. Modifying factors: The symptoms are alleviated by nothing. the symptoms are aggravated by movement. Associated signs and symptoms: The patient has no apparent associated signs or symptoms. Severity of pain: At its worst the pain was moderate in the emergency department the pain is unchanged. The patient has not experienced similar symptoms in the past. The patient has not recently seen a physician. Pt reports left flank pain that radiates up to left chest. States the pain is worse when laying down and with movement. Historical: - Allergies: 01:12 Claritin; as6 - PMHx: 01:12 Gout; Hypertension; as6 - PSHx: 01:12 None; as6 - Immunization history:: Client reports receiving the 2nd dose of the Covid vaccine, [employer]. - Social history:: Smoking status: Patient reports the use of cigarette tobacco products, cigars. ROS: 01:39 Constitutional: Negative for fever, chills, and weight loss. kb 01:39 Back: Positive for flank pain, on the left. 01:39 All other systems are negative. Exam: 01:39 Constitutional: This is a well developed, well nourished patient who is awake, alert, kb and in no acute distress. Head/Face: Normocephalic, atraumatic. ENT: Moist Mucous membranes Cardiovascular: Regular rate and rhythm with a normal S1 and S2. No gallops, murmurs, or rubs. No pulse deficits. Respiratory: Respirations even and unlabored. No increased work of breathing. Talking in full sentences Abdomen/GI: Soft, non-tender. No distention Skin: Warm, dry with normal turgor. Normal color. MS/ Extremity: Pulses equal, no cyanosis. Neurovascular intact. Full, normal range of motion. Neuro: Awake and alert, GCS 15, oriented to person, place, time, and situation. Moves all extremities. Normal gait. 01:39 Back: pain, that is mild, that is moderate, of the left flank, ROM is painful, normal spinal alignment noted. 02:05 ECG was reviewed by the Attending Physician. kb Vital Signs: 01:09 BP 150 / 92; Pulse 85; Resp 18 S; Temp 97.9(TE); Pulse Ox 100% on R/A; Weight 102.06 kg as6 (R); Height 5 ft. 8 in. (R); Pain 5/10; 03:08 BP 147 / 89; Pulse 79; Resp 16; Pulse Ox 100% ; bp 01:09 Body Mass Index 34.21 (102.06 kg, 172.72 cm) as6 01:09 Pain Scale: Adult as6 MDM: 01:15 Patient medically screened. kb 01:39 Differential diagnosis: nephrolithiasis, UTI, muscle strain. Data reviewed: vital kb signs, nurses notes. 02:46 Counseling: I had a detailed discussion with the patient and/or guardian regarding the kb historical points, exam findings, and any diagnostic results supporting the discharge/admit diagnosis, lab results, radiology results, the need for outpatient follow up, a family practitioner, to return to the emergency department if symptoms worsen or persist or if there are any questions or concerns that arise at home. 02/17 01:26 Order name: Urinalysis w/ reflexes; Complete Time: 02:10 kb 02/17 01:26 Order name: CT Stone Protocol 02/17 01:26 Order name: Chest Single View XRAY 02/17 01:26 Order name: EKG; Complete Time: 01:27 kb 02/17 01:26 Order name: EKG - Nurse/Tech; Complete Time: 02:24 kb EC:05 Rate is 70 beats/min. Rhythm is regular. QRS [place] is Normal. [place] interval is normal at kb 196 msec. QRS interval is normal at 96 [place]sec[place] [address] msec. Administered Medications: 01:40 Drug: Ketorolac IM 30 mg Route: IM; Site: left gluteus; bp 02:24 Follow up: Response: No adverse reaction bp Disposition Summary: 02/17/23 02:46 Discharge Ordered Location: Home kb Condition: Stable kb Diagnosis - Left Flank Pain kb Followup: kb - With: Emergency Department - When: As needed - Reason: Worsening of condition Followup: kb - With: Private Physician - When: 2 - 3 days - Reason: Recheck today's complaints, Continuance of care, Re-evaluation by your physician Discharge Instructions: - Discharge Summary Sheet kb - Muscle Strain, [id number] kb - Flank Pain, Adult, [id number] kb Forms: - Medication Reconciliation Form kb - Thank You Letter kb - Antibiotic Education kb - Prescription Opioid Use kb - Patient Portal Instructions kb - Leadership Thank You Letter kb Prescriptions: - Diclofenac Sodium 75 mg Oral tablet,delayed release (DR/EC) - take 1 tablet by ORAL route 2 times per day As needed; 30 tablet; Refills: 0, kb Product Selection Permitted - orphenadrine citrate 100 mg Oral Tablet Sustained Release - take 1 tablet by ORAL route 2 times per day As needed; 20 tablet; Refills: 0, kb Product Selection Permitted - Norvasc 10 mg Oral Tablet - take 1 tablet by ORAL route once daily; 30 tablet; Refills: 0, Product lux Selection Permitted Signatures: Dispatcher [employer] Therese Campos, LAUNDRY AGENT-C LAUNDRY AGENT-Stanton Elizondo, RN RN bp Yasir López, ARNEL RN as6
[2023-02-17 04:33] VITALS: TEMP 97.9; O2SAT 100
[2023-02-17 04:34] VITALS: BP 147/89
--- NOTE | 2023-02-17 10:26 | RAD REPORT ---
EXAM DESCRIPTION: RAD - Chest Single View - 02/17/2023 1:48 am CLINICAL HISTORY: 2 years Male, CHEST PAIN COMPARISON: Chest radiograph dated 06/09/2019 FINDINGS: No focal lung consolidation. No pleural effusion. No pneumothorax. Cardiomediastinal silhouette is within normal limits. No acute osseous abnormality. IMPRESSION: No acute cardiopulmonary disease. Electronically signed by: Josue Parker DO 02/17/2023 2:14 AM CDT Due to temporary technical issues with the PACS/Fluency reporting system, reports are being signed by the in house radiologists without review as a courtesy to insure prompt reporting. The interpreting radiologist is fully responsible for the content of the report.
--- NOTE | 2023-02-17 11:10 | RAD REPORT ---
EXAM DESCRIPTION: CT - Stone Protocol - 02/17/2023 6:54 am CLINICAL HISTORY: The patient is 32 years old and is Male; FLANK PAIN TECHNIQUE: Axial computed tomography images of the abdomen and pelvis without intravenous contrast. Sagittal and coronal reformatted images were created and reviewed. This CT exam was performed usi ng one or more of the following dose reduction techniques: automated exposure control, adjustment o f the mA and/or kV according to patient size, and/or use of iterative reconstruction technique. DLP: 987 mGy*cm COMPARISON: None. FINDINGS: LUNG BASES: Lung bases are clear. HEART: Visualized heart is normal. ABDOMEN: LIVER: Hepatic steatosis. GALLBLADDER AND BILE DUCTS: Unremarkable. No calcified stones. No ductal dilation. PANCREAS: Unremarkable. No ductal dilation. SPLEEN: Unremarkable. No splenomegaly. ADRENALS: Unremarkable. No mass. KIDNEYS AND URETERS: Unremarkable. No obstructing stones. No hydronephrosis. STOMACH AND BOWEL: Moderate stool burden. No obstruction. No mucosal thickening. PELVIS: APPENDIX: The appendix is seen and is within normal limits. BLADDER: Bladder is decompressed. No stones. REPRODUCTIVE: Unremarkable as visualized. ABDOMEN and PELVIS: INTRAPERITONEAL SPACE: Unremarkable. No free air. No significant fluid collection. BONES/JOINTS: No acute fracture. No dislocation. SOFT TISSUES: Soft tissue swelling and subcutaneous emphysema in the left gluteal soft tissues. VASCULATURE: Unremarkable. No abdominal aortic aneurysm. LYMPH NODES: Unremarkable. No enlarged lymph nodes. IMPRESSION: 1. No acute abdominal or pelvic abnormality. No obstructive uropathy. 2. Moderate stool burden. Correlate for constipation. 3. Hepatic steatosis. 4. Soft tissue swelling and subcutaneous emphysema in the left gluteal soft tissues. Electronically signed by: Josue Parker DO 02/17/2023 2:16 AM CDT Due to temporary technical issues with the PACS/Fluency reporting system, reports are being signed by the in house radiologists without review as a courtesy to insure prompt reporting. The interpreting radiologist is fully responsible for the content of the report.
--- NOTE | 2023-02-17 16:27 | EKG ---
Test Date: 2023-02-17 Test Time: 02:01:39 Pollution Control Chemist: BP MEASUREMENT RESULTS: Intervals: Rate: 70 SC: 196 QRSD: 96 QT: 384 QTc: 414 [place]: P: 25 SC: 196 QRS: 13 T: 12 INTERPRETIVE STATEMENTS: Normal sinus rhythm Normal ECG Compared to ECG 06/09/2019 17:53:44 T-wave abnormality no longer present Possible ischemia no longer present Electronically Signed On 02-17-23 16:25:27 CDT by Ra Pineda
== END 2023-02-17 03:09 | disposition home or self-care (01) ==
LOC: ER 01:04
DX: R10.9 Unspecified abdominal pain (principal)
CPT/HCPCS: 71045; 74176; 76377; 81003; 93005; 96372; 99284